=== PATIENT | female | born 1960 | race Caucasian/White ===

== ENCOUNTER 2018-03-25 15:55 | Emergency (ER) | payer OTHER ==
[2018-03-25] MEDS ORDERED: HYDROCODONE/APAP 10/325 TAB ONE (16:37)
--- NOTE | 2018-03-25 16:57 | RAD REPORT ---
EXAM DESCRIPTION: CT - Thorax Wo Con - 03/25/2018 4:37 pm CLINICAL HISTORY: Fall, right-sided chest and rib pain COMPARISON: None. TECHNIQUE: Axial 5 mm thick images of the chest were obtained without IV contrast. All CT scans are performed using dose optimization technique as appropriate and may include automated exposure control or mA/KV adjustment according to patient size. FINDINGS: Minimal scarring and/ or atelectasis in each posterior gutter. No pleural thickening or pl eural effusion. No pneumothorax. No abnormal mediastinal or hilar masses or lymphadenopathy seen. No gross aortic or pulmonary artery finding suspected. Assessment is limited in the absence of IV contrast. No pericardial thickening or effusion. No chest wall mass or abnormal axillary lymphadenopathy. No displaced rib fracture seen. No definitive fracture line identified. There is a relatively acute a ngulation of cortex of the right third, fourth and fifth ribs near the costochondral junction. Nondis placed rib fracture would be possible and can be correlated with localizing pain symptoms. There is n o similar appearance to the corresponding anterior left ribs. IMPRESSION: No displaced rib fracture, pneumothorax, pulmonary contusion or other emergent finding. The relative acute cortex angulation of the right third, fourth and fifth ribs near the costochondral junction are suspicious for nondisplaced fracture and can be correlated with localizing pain symptom s.
--- NOTE | 2018-03-25 16:58 | RAD REPORT ---
EXAM DESCRIPTION: CT - Abdomen Wo Contrast - 03/25/2018 4:38 pm CLINICAL HISTORY: Fall, right-sided rib and chest pain COMPARISON: None. TECHNIQUE: Axial [address] imaging of the abdomen was performed. No IV contrast was adm inistered. Oral contrast was administered. All CT scans are performed using dose optimization technique as appropriate and may include automated exposure control or mA/KV adjustment according to patient size. FINDINGS: Chest findings are detailed in separate report. The liver, spleen, and pancreas show no suspicious findings for non IV contrast imaging. Gallbladder and biliary tree are without suspicious finding. No hydronephrosis or suspicious renal mass. Isodense masses and pyelonephritis are not excluded on a non IV contrast study. No adrenal abnormality. No dilated bowel loops or bowel wall thickening. No free air, free fluid or inflammatory stranding. N o hernia, mass or bulky lymphadenopathy. No suspicious bony findings. Exam sensitivity is decreased when no IV contrast is administered. IMPRESSION: Non contrast CT abdomen imaging showing no significant or suspicious finding.
--- NOTE | 2018-03-25 17:16 | ER ---
Nurse's Notes [facility] Name: Carole Malagon Age: 57 yrs Sex: Female : 1960 Arrival Date: 03/25/2018 Time: 15:58 Bed 30 Private MD: Unknown, Unknown Diagnosis: RIB PAIN Presentation: 03/25 15:59 Presenting complaint: Patient states: fall about 2 days ago, unsure why she fell, pt sv uses a cane to ambulate. c/o right side pain and bruising and pain is worse with deep breathing and movement. Care prior to arrival: None. Mechanism of Injury: Fall from standing position. 15:59 Acuity: OSITO 3 sv 15:59 Method Of Arrival: Ambulatory sv 16:02 Transition of care: patient was not received from another setting of care. Onset of sv symptoms was March 23, 2018. 16:30 Risk Assessment: Do you want to hurt yourself or someone else? Patient reports no iw desire to harm self or others. Initial Sepsis Screen: Does the patient meet any 2 criteria? No. Patient's initial sepsis screen is negative. Does the patient have a suspected source of infection? No. Patient's initial sepsis screen is negative. Trauma Activation: Not Applicable Physician: ED Physician; Name: ; Notified At: ; Arrived At: Physician: General Surgeon; Name: ; Notified At: ; Arrived At: Physician: Radiology; Name: ; Notified At: ; Arrived At: Physician: Respiratory; Name: ; Notified At: ; Arrived At: Physician: Lab; Name: ; Notified At: ; Arrived At: Historical: - Allergies: 16:03 PENICILLINS; sv - PMHx: 16:03 avascular necrosis; chronic kidney disease; Hyperlipidemia; Hypertension; sv - Immunization history:: Flu vaccine is up to date. - Social history:: Smoking status: Patient/guardian denies using tobacco. - Ebola Screening: : No symptoms or risks identified at this time. Screenin:30 Abuse screen: Denies threats or abuse. Denies injuries from another. Nutritional iw screening: No deficits noted. Tuberculosis screening: No symptoms or risk factors identified. Fall Risk Fall in past 12 months (25 points). Assessment: 16:34 General: Appears in no apparent distress. Behavior is calm, cooperative. Pain: iw Complains of pain in right lateral anterior chest. 16:34 Neuro: Level of Consciousness is awake, alert, obeys commands, Oriented to person, iw place, time. Cardiovascular: Patient's skin is warm and dry. Respiratory: Respiratory effort is even, unlabored, Respiratory pattern is regular, symmetrical. Derm: Skin is intact, is healthy with good turgor. Musculoskeletal: Range of motion: intact in all extremities. Vital Signs: 16:03 BP 184 / 116; Pulse 90; Resp 16; Temp 98.8; Pulse Ox 100% ; Weight 72.57 kg; Height 5 sv ft. 5 in. (165.10 cm); Pain 10/10; 16:03 Body Mass Index 26.63 (72.57 kg, 165.10 cm) sv ED Course: 15:58 Patient arrived in ED. sb2 15:58 Unknown, Unknown is Private Physician. sb2 16:02 Triage completed. sv 16:03 Arm band placed on. sv 16:09 Yash Christine MD is Attending Physician. [facility] 16:15 Attending Physician role handed off by Yash Christine MD ps1 16:15 Luis Vivas MD is Attending Physician. ps1 16:[address] via wheelchair. ut 16:26 Iesha Emerson, RN is Primary Nurse. iw 16:30 Patient has correct armband on for positive identification. iw 16:37 CT Chest Wo Con In Process Unspecified. EDMS 16:37 Abdomen Wo Contrast In Process Unspecified. EDMS 17:16 Nestor Galvan DO is Referral Physician. ps1 17:30 No provider procedures requiring assistance completed. Patient did not have IV access iw during this emergency room visit. Administered Medications: 17:00 Drug: [place] 10 mg-325 mg 1 tabs Route: PO; iw Outcome: 17:16 Discharge ordered by . ps1 17:30 Discharged to home ambulatory, with family. iw 17:30 Condition: good 17:30 Discharge instructions given to patient, Instructed on discharge instructions, follow up and referral plans. medication usage, Demonstrated understanding of instructions, follow-up care, medications, Prescriptions given X 1. 17:32 Patient left the ED. iw Signatures: Dispatcher [employer] Demetria Evans RN RN Yash Christine MD MD cha Williams, Irene, RN JEB Leonel Zhang Phillip, MD MD ps1 Dariana Kenyon sb2 Corrections: (The following items were deleted from the chart) 17:43 16:34 Pain: Complains of pain in right lateral anterior chest iw iw
--- NOTE | 2018-03-25 17:16 | EDPHYS ---
Physician Documentation [facility] Name: Carole Malagon Age: 57 yrs Sex: Female : 1960 Arrival Date: 03/25/2018 Time: 15:58 Bed 30 Private MD: Unknown, Unknown ED Physician Luis Vivas HPI: 03/25 16:24 This 57 yrs old Female presents to ER via Ambulatory with complaints of Fall ps1 Injury. 16:24 Patient fell a week ago and has been taking norco without relief. Right rib pain at ps1 around rib 7-9 Chronic pain, sees Zahida. Cannot take NSAIDS 2/2 CKD. Pain rated as severe. No remitting factors. . Historical: - Allergies: 16:03 PENICILLINS; sv - PMHx: 16:03 avascular necrosis; chronic kidney disease; Hyperlipidemia; Hypertension; sv - Immunization history:: Flu vaccine is up to date. - Social history:: Smoking status: Patient/guardian denies using tobacco. - Ebola Screening: : No symptoms or risks identified at this time. ROS: 16:24 Constitutional: Negative for fever, chills, and weight loss, Eyes: Negative for injury, ps1 pain, redness, and discharge, Cardiovascular: Negative for chest pain, palpitations, and edema, Abdomen/GI: Negative for abdominal pain, nausea, vomiting, diarrhea, and constipation, Back: Negative for injury and pain, MS/Extremity: Negative for injury and deformity, Skin: Negative for injury, rash, and discoloration, Neuro: Negative for headache, weakness, numbness, tingling, and seizure. 16:24 Respiratory: Positive for pleurisy, of the chest. Exam: 16:32 Constitutional: This is a well developed, well nourished patient who is awake, alert, ps1 and in no acute distress. Head/Face: Normocephalic, atraumatic. Eyes: Pupils equal round and reactive to light, extra-ocular motions intact. Lids and lashes normal. Conjunctiva and sclera are non-icteric and not injected. ENT: Nares patent. No nasal discharge, no septal abnormalities noted. Tympanic membranes are normal and external auditory canals are clear. Oropharynx with no redness, swelling, or masses, exudates, or evidence of obstruction, uvula midline. Mucous membranes moist. Cardiovascular: Regular rate and rhythm. No gallops, murmurs, or rubs. Normal PMI, no JVD. No pulse deficits. Respiratory: Lungs have equal breath sounds bilaterally, clear to auscultation and percussion. No rales, rhonchi or wheezes noted. No increased work of breathing, no retractions or nasal flaring. Abdomen/GI: Soft, non-tender, with normal bowel sounds. No distension or tympany. No guarding or rebound. No evidence of tenderness throughout. Skin: Warm, dry with normal turgor. Normal color with no rashes, no lesions, and no evidence of cellulitis. MS/ Extremity: Pulses equal, no cyanosis. Neurovascular intact. Full, normal range of motion. Neuro: Awake and alert, GCS 15, oriented to person, place, time, and situation. Cranial nerves II-XII grossly intact. Sensory grossly intact. 16:32 Chest/axilla: Inspection: normal, Palpation: tenderness, that is moderate, of the right lateral anterior chest, that totally reproduces the patient's complaints. Vital Signs: 16:03 BP 184 / 116; Pulse 90; Resp 16; Temp 98.8; Pulse Ox 100% ; Weight 72.57 kg; Height 5 sv ft. 5 in. (165.10 cm); Pain 10/10; 16:03 Body Mass Index 26.63 (72.57 kg, 165.10 cm) sv MDM: 16:10 Patient medically screened. [facility] 17:17 Data reviewed: vital signs, nurses notes, radiologic studies, CT scan, and as a result, ps1 I will discharge patient. 03/25 16:16 Order name: CT Chest Wo Con; Complete Time: 17:08 ps1 03/25 16:36 Order name: Abdomen Wo Contrast; Complete Time: 17:08 EDMS Administered Medications: 17:00 Drug: [place] 10 mg-325 mg 1 tabs Route: PO; iw Disposition: 03/25/18 17:16 Discharged to Home. Impression: RIB PAIN. - Condition is Stable. - Discharge Instructions: Rib Contusion. - Prescriptions for Medrol (Jerson) 4 mg Oral Tablets, Dose Pack - take 1 tablet by ORAL route as directed - follow package instructions; 1 packet. - Medication Reconciliation Form, Thank You Letter, Antibiotic Education, Prescription Opioid Use form. - Follow up: Private Physician; When: As needed; Reason: Recheck today's complaints, Continuance of care, Re-evaluation by your physician. Follow up: Nestor Galvan DO; When: Upon discharge from the Emergency Department; Reason: Further diagnostic work-up, Continuance of care. - Problem is an ongoing problem. - Symptoms are unchanged. Signatures: Dispatcher [employer] [facility] Demetria Rice RN RN sv Anderson, Corey, MD MD cha Williams, Irene, RN RN iw Singer, Phillip, MD MD ps1 Corrections: (The following items were deleted from the chart) 16:36 16:33 Abdomen Pelvis Wo Con+CT.RAD.BRZ ordered. [facility] 17:32 17:16 03/25/2018 17:16 Discharged to Home. Impression: RIB PAIN. Condition is Stable. iw Forms are Medication Reconciliation Form, Thank You Letter, Antibiotic Education, Prescription Opioid Use. Follow up: Private Physician; When: As needed; Reason: Recheck today's complaints, Continuance of care, Re-evaluation by your physician. Follow up: Nestor Galvan; When: Upon discharge from the Emergency Department; Reason: Further diagnostic work-up, Continuance of care. Problem is an ongoing problem. Symptoms are unchanged. ps1
== END 2018-03-25 17:32 | disposition home or self-care (01) ==
LOC: ER 15:55
DX: R07.81 Pleurodynia (principal); W19.XXXA Unspecified fall, initial encounter; I12.9 Hypertensive chronic kidney disease with stage 1 through stage 4 chronic kidney disease, or unspecified chronic kidney disease; N18.9 Chronic kidney disease, unspecified
CPT/HCPCS: 71250; 74150; 99284

== ENCOUNTER 2018-06-22 16:15 | Emergency (ER) | payer OTHER ==
[2018-06-22 17:21] LABS: Potassium 3.4 mmol/L (3.5-5.1)
[2018-06-22 17:23] LABS: Absolute Lymphocytes (CBC) 2.2 K/uL (0.7-4.9); Absolute Monocytes 0.6 K/uL (0.1-1.3); Absolute Neutrophil 8.5 K/uL (1.8-8.0); Basophils % 0.5 % (0-1.3); Eosinophils % 0.4 % (0-4.4); Hematocrit 50.1 % (36.0-45.0); Lymphocytes % 19.5 % (15.3-44.8); MPV 10.7 fL (7.6-11.3); RBC Red Blood Cell Count 5.88 M/uL (3.86-4.86)
[2018-06-22 17:25] LABS: Albumin 4.5 g/dL (3.4-5.0); Bilirubin Direct 0.1 mg/dL (0-0.2); Bilirubin Total 0.6 mg/dL (0.2-1.0); Protein, Total 8.4 g/dL (6.4-8.2)
[2018-06-22] MEDS ORDERED: NA CHLORIDE 0.9% 1,000 ML ONE ×2 (17:35→19:05)
--- NOTE | 2018-06-22 18:20 | RAD REPORT ---
EXAM DESCRIPTION: CT - Abdomen Pelvis W Contrast - 06/22/2018 6:06 pm CLINICAL HISTORY: Abdominal pain/lower abdominal pain with vomiting COMPARISON: 2016 TECHNIQUE: Computed axial tomography of the abdomen pelvis was obtained. 100 cc Isovue-300 was admin istered intravenously. Oral contrast was not requested which limits evaluation of bowel. All CT scans are performed using dose optimization technique as appropriate and may include automated exposure control or mA/KV adjustment according to patient size. FINDINGS: Fatty liver The Spleen, pancreas, adrenal and kidneys appear unremarkable. There is no evidence of diverticulitis. The appendix is not clearly seen. A hysterectomy has been performed A battery pack lies within the subcutaneous fat of the right lower abdomen IMPRESSION: No acute abnormality is displayed.
--- NOTE | 2018-06-22 19:16 | ER ---
Nurse's Notes [facility] Name: Carole Malagon Age: 57 yrs Sex: Female : 1960 Arrival Date: 06/22/2018 Time: 16:19 Bed 16 Private MD: None, None Diagnosis: Nausea with vomiting, unspecified;Diarrhea, unspecified;Volume depletion Presentation: 06/22 16:27 Presenting complaint: Patient states: For the last 2 weeks I am having nausea, was la1 vomiting before but it stopped. I am also having loose stools. I am also having lower abd pain. Transition of care: patient was not received from another setting of care. Onset of symptoms was June 22, 2018. Risk Assessment: Do you want to hurt yourself or someone else? Patient reports no desire to harm self or others. Initial Sepsis Screen: Does the patient meet any 2 criteria? No. Patient's initial sepsis screen is negative. Does the patient have a suspected source of infection? No. Patient's initial sepsis screen is negative. Care prior to arrival: None. 16:27 Method Of Arrival: Ambulatory la1 16:27 Acuity: OSITO 3 la1 Historical: - Allergies: 16:27 PENICILLINS; la1 - Home Meds: 16:35 hydrocodone-acetaminophen 10-325 mg Oral tab 1 tab every 4 hours [Active]; lisinopril rb1 10 mg Oral tab 1 tab once daily [Active]; rosuvastatin 40 mg Oral tab 1 tab once daily [Active]; Lyrica Oral [Active]; Ambien Oral [Active]; Zofran Oral [Active]; Nexium Oral [Active]; - PMHx: 16:27 chronic kidney disease; Hyperlipidemia; Hypertension; avascular necrosis; la1 - PSHx: 16:35 Hysterectomy; bilateral knees; back; Tonsillectomy; Pain pump - NO MEDICATION; rb1 - Immunization history:: Adult Immunizations up to date. - Social history:: Smoking status: Patient/guardian denies using tobacco. - Ebola Screening: : No symptoms or risks identified at this time. Screenin:35 Abuse screen: Denies threats or abuse. Nutritional screening: decreased appetite. rb1 Tuberculosis screening: No symptoms or risk factors identified. Fall Risk None identified. Assessment: 16:35 General: Appears in no apparent distress. distressed, Behavior is calm, cooperative, rb1 Denies fever. Pain: Complains of pain in abdomen Pain currently is 8 out of 10 on a pain scale. Pain began a couple of weeks ago per pt. report. Neuro: Level of Consciousness is awake, alert, obeys commands, Oriented to person, place, time, situation. Neuro: Reports weakness. Cardiovascular: Capillary refill < 3 seconds is brisk in bilateral fingers. Respiratory: Airway is patent Respiratory effort is even, unlabored, Respiratory pattern is regular, symmetrical. GI: Reports Soft stools. GI: Reports nausea. : No signs and/or symptoms were reported regarding the genitourinary system. Derm: Skin is pink, warm \T\ dry. 17:30 Reassessment: Patient appears in no apparent distress at this time. No changes from rb1 previously documented assessment. Pt. is unable to give a urine specimen at this time. at bedside. 18:30 Reassessment: Patient appears in no apparent distress at this time. Patient and/or rb1 family updated on plan of care and expected duration. Pain level reassessed. Patient is alert, oriented x 3, equal unlabored respirations, skin warm/dry/pink. NS 1000 ml bolus is infusing. Pt. does not have to urinate at this time. 19:25 Reassessment: Patient appears in no apparent distress at this time. Patient is alert, aa1 oriented x 3, equal unlabored respirations, skin warm/dry/pink. Discussed d/c \T\ f/u instructions with pt \T\ spouse; denies questions or concerns at this time Patient denies pain at this time. Patient states feeling better. Vital Signs: 16:29 Resp 16; Temp 97.5; Pulse Ox 98% on R/A; Weight 75.3 kg; Height 5 ft. 5 in. (165.10 cm);la1 16:32 BP 161 / 114; la1 17:29 BP 128 / 96; Pulse 85; Resp 17; Pulse Ox 96% on R/A; Pain 8/10; rb1 19:25 BP 138 / 89; Pulse 82; Resp 16; Temp 97.7; Pulse Ox 98% on R/A; Pain 0/10; aa1 16:29 Body Mass Index 27.62 (75.30 kg, 165.10 cm) la1 ED Course: 16:19 Patient arrived in ED. sb2 16:20 None, None is Private Physician. sb2 16:28 Triage completed. la1 16:29 Arm band placed on left wrist. la1 16:33 Mindy Beach FNP-C is [facility]. kb 16:33 Avila Soto MD is Attending Physician. kb 16:35 Patient has correct armband on for positive identification. Bed in low position. Call rb1 light in reach. Side rails up X 1. Pulse ox on. NIBP on. 16:53 Initial lab(s) drawn, by me, sent to lab. Inserted saline lock: 20 gauge in left dh3 antecubital area, using aseptic technique. Blood collected. 17:22 Flores Melgar, RN is Primary Nurse. rb1 17:[address] 18:05 CT completed. Patient tolerated procedure well. Patient moved back from CT. bq 18:06 CT Abd/Pelvis - W/Contrast In Process Unspecified. EDMS 19:00 Report given to JEB Hale. rb1 19:25 No provider procedures requiring assistance completed. IV discontinued, intact, aa1 bleeding controlled, No redness/swelling at site. Pressure dressing applied. Administered Medications: 17:31 Drug: NS 0.9% 1000 ml Route: IV; Rate: 1000 ml; Site: left antecubital; rb1 18:47 Follow up: IV Status: Completed infusion rb1 18:55 Drug: NS 0.9% 1000 ml Route: IV; Rate: 1000 ml; Site: left antecubital; rb1 19:25 Follow up: IV Status: Completed infusion aa1 Outcome: 19:15 Discharge ordered by . kb 19:25 Patient left the ED. aa1 19:25 Discharged to home ambulatory, with significant other. aa1 19:25 Condition: good 19:25 Discharge instructions given to patient, significant other, Instructed on discharge instructions, follow up and referral plans. medication usage, Demonstrated understanding of instructions, follow-up care, medications, Prescriptions given X 2. Signatures: Dispatcher [employer] EDAZ Mindy Beach FNP-C FNP-Alexia Briceno RN RN aa1 Guy Adam Quilty, Whit bq Mike Cook RN RN la1 Flores Melgar, RN RN rb1 Verenice Castaneda 3 Dariana Kenyon sb2
--- NOTE | 2018-06-22 19:16 | EDPHYS ---
Physician Documentation [facility] Name: Carole Malagon Age: 57 yrs Sex: Female : 1960 Arrival Date: 06/22/2018 Time: 16:19 Bed 16 Private MD: None, None ED Physician Avila Soto HPI: 06/22 16:50 This 57 yrs old Female presents to ER via Ambulatory with complaints of kb Weakness, Nausea, Loose Stools. 16:50 The patient presents with abdominal pain that is diffuse. Onset: The symptoms/episode kb began/occurred 2 week(s) ago. The symptoms do not radiate. Associated signs and symptoms: Pertinent positives: nausea, vomiting, and diarrhea. The symptoms are described as constant. Modifying factors: The symptoms are alleviated by nothing, the symptoms are aggravated by nothing. Severity of pain: At its worst the pain was moderate in the emergency department the pain is unchanged. The patient has not experienced similar symptoms in the past. The patient has not recently seen a physician. Historical: - Allergies: 16:27 PENICILLINS; la1 - Home Meds: 16:35 hydrocodone-acetaminophen 10-325 mg Oral tab 1 tab every 4 hours [Active]; lisinopril rb1 10 mg Oral tab 1 tab once daily [Active]; rosuvastatin 40 mg Oral tab 1 tab once daily [Active]; Lyrica Oral [Active]; Ambien Oral [Active]; Zofran Oral [Active]; Nexium Oral [Active]; - PMHx: 16:27 chronic kidney disease; Hyperlipidemia; Hypertension; avascular necrosis; la1 - PSHx: 16:35 Hysterectomy; bilateral knees; back; Tonsillectomy; Pain pump - NO MEDICATION; rb1 - Immunization history:: Adult Immunizations up to date. - Social history:: Smoking status: Patient/guardian denies using tobacco. - Ebola Screening: : No symptoms or risks identified at this time. ROS: 16:49 Constitutional: Negative for fever, chills, and weight loss, ENT: Negative for injury, kb pain, and discharge, Neck: Negative for injury, pain, and swelling, Cardiovascular: Negative for chest pain, palpitations, and edema, Respiratory: Negative for shortness of breath, cough, wheezing, and pleuritic chest pain, Back: Negative for injury and pain, : Negative for injury, bleeding, discharge, and swelling, MS/Extremity: Negative for injury and deformity, Skin: Negative for injury, rash, and discoloration, Neuro: Negative for headache, weakness, numbness, tingling, and seizure. 16:49 Abdomen/GI: Positive for abdominal pain, nausea, vomiting, and diarrhea. Exam: 16:49 Constitutional: This is a well developed, well nourished patient who is awake, alert, kb and in no acute distress. Head/Face: Normocephalic, atraumatic. ENT: Nares patent. No nasal discharge, no septal abnormalities noted. Tympanic membranes are normal and external auditory canals are clear. Oropharynx with no redness, swelling, or masses, exudates, or evidence of obstruction, uvula midline. Mucous membranes moist. Neck: Trachea midline, no thyromegaly or masses palpated, and no cervical lymphadenopathy. Supple, full range of motion without nuchal rigidity, or vertebral point tenderness. No Meningismus. Chest/axilla: Normal chest wall appearance and motion. Nontender with no deformity. No lesions are appreciated. Cardiovascular: Regular rate and rhythm with a normal S1 and S2. No gallops, murmurs, or rubs. Normal PMI, no JVD. No pulse deficits. Respiratory: Lungs have equal breath sounds bilaterally, clear to auscultation and percussion. No rales, rhonchi or wheezes noted. No increased work of breathing, no retractions or nasal flaring. Abdomen/GI: Soft, non-tender, with normal bowel sounds. No distension or tympany. No guarding or rebound. No evidence of tenderness throughout. Skin: Warm, dry with normal turgor. Normal color with no rashes, no lesions, and no evidence of cellulitis. MS/ Extremity: Pulses equal, no cyanosis. Neurovascular intact. Full, normal range of motion. Neuro: Awake and alert, GCS 15, oriented to person, place, time, and situation. Cranial nerves II-XII grossly intact. Motor strength 5/5 in all extremities. Sensory grossly intact. Cerebellar exam normal. Normal gait. Vital Signs: 16:29 Resp 16; Temp 97.5; Pulse Ox 98% on R/A; Weight 75.3 kg; Height 5 ft. 5 in. (165.10 cm);la1 16:32 BP 161 / 114; la1 17:29 BP 128 / 96; Pulse 85; Resp 17; Pulse Ox 96% on R/A; Pain 8/10; rb1 19:25 BP 138 / 89; Pulse 82; Resp 16; Temp 97.7; Pulse Ox 98% on R/A; Pain 0/10; aa1 16:29 Body Mass Index 27.62 (75.30 kg, 165.10 cm) la1 MDM: 16:33 Patient medically screened. kb 16:49 Data reviewed: vital signs, nurses notes. Data interpreted: Pulse oximetry: on room air kb is 98 %. Interpretation: normal. 18:22 Counseling: I had a detailed discussion with the patient and/or guardian regarding: the kb historical points, exam findings, and any diagnostic results supporting the discharge/admit diagnosis, lab results, radiology results, the need for outpatient follow up, a family practitioner, to return to the emergency department if symptoms worsen or persist or if there are any questions or concerns that arise at home. 06/22 16:33 Order name: Basic Metabolic Panel; Complete Time: 17:27 kb 06/22 16:33 Order name: CBC with Diff; Complete Time: 17:31 kb 06/22 16:44 Order name: Hepatic Function; Complete Time: 17:27 kb 06/22 16:44 Order name: Lipase; Complete Time: 17:27 kb 06/22 17:31 Order name: CT Abd/Pelvis - W/Contrast; Complete Time: 18:22 kb 06/22 19:17 Order name: Urine Dipstick--Ancillary (enter results) ag4 06/22 16:33 Order name: IV Saline Lock; Complete Time: 16:57 kb 06/22 16:33 Order name: Labs collected and sent; Complete Time: 16:57 kb 06/22 16:44 Order name: Urine Dipstick-Ancillary (obtain specimen); Complete Time: 19:27 kb Administered Medications: 17:31 Drug: NS 0.9% 1000 ml Route: IV; Rate: 1000 ml; Site: left antecubital; rb1 18:47 Follow up: IV Status: Completed infusion rb1 18:55 Drug: NS 0.9% 1000 ml Route: IV; Rate: 1000 ml; Site: left antecubital; rb1 19:25 Follow up: IV Status: Completed infusion aa1 Disposition: 06/23 07:21 Co-signature as Attending Physician, Avila Soto MD. rn Disposition: 06/22/18 19:15 Discharged to Home. Impression: Nausea with vomiting, unspecified, Diarrhea, unspecified, Volume depletion. - Condition is Stable. - Discharge Instructions: Food Choices to Help Relieve Diarrhea, Adult, Nausea and Vomiting, Adult, [id number], Diarrhea, Adult, [id number]. - Prescriptions for Bentyl 20 mg Oral Tablet - take 1 tablet by ORAL route every 6 hours As needed; 20 tablet. Zofran 4 mg Oral Tablet - take 1 tablet by ORAL route every 6 hours As needed; 20 tablet. - Medication Reconciliation Form, Thank You Letter, Antibiotic Education, Prescription Opioid Use form. - Follow up: Private Physician; When: 2 - 3 days; Reason: Recheck today's complaints, Continuance of care, Re-evaluation by your physician. Follow up: Emergency Department; When: As needed; Reason: Worsening of condition. Signatures: Dispatcher [employer] EDGA [place], ART GLASS SETTER-C ART GLASS SETTER-CkAlexia Garvey, RN RN aa1 Avila Soto MD MD rn Attema, Lee, RN RN la1 Flores Melgar, RN RN rb1 Corrections: (The following items were deleted from the chart) 06/22 19:25 19:15 06/22/2018 19:15 Discharged to Home. Impression: Nausea with vomiting, aa1 unspecified; Diarrhea, unspecified; Volume depletion. Condition is Stable. Forms are Medication Reconciliation Form, Thank You Letter, Antibiotic Education, Prescription Opioid Use. Follow up: Private Physician; When: 2 - 3 days; Reason: Recheck today's complaints, Continuance of care, Re-evaluation by your physician. Follow up: Emergency Department; When: As needed; Reason: Worsening of condition. kb
[2018-06-22 19:24] LABS: Urine Blood NEGATIVE (NEG); Urine Glucose NEGATIVE (NEG); Urine Protein NEGATIVE (NEG); Urine Specific Gravity 1.005 (1.005-1.030); Urine pH 5.5 (5.0-7.0)
== END 2018-06-22 19:25 | disposition home or self-care (01) ==
LOC: ER 16:15
DX: E86.9 Volume depletion, unspecified (principal); R19.7 Diarrhea, unspecified; I12.9 Hypertensive chronic kidney disease with stage 1 through stage 4 chronic kidney disease, or unspecified chronic kidney disease; N18.9 Chronic kidney disease, unspecified; E78.5 Hyperlipidemia, unspecified; Z88.0 Allergy status to penicillin
CPT/HCPCS: 36415; 74177; 80048; 80076; 81003; 83690; 85025; 96360; 96361; 99284; J7030 ×2; Q9967

== ENCOUNTER 2019-04-07 10:21 | Inpatient (IN) | payer OTHER ==
[2019-04-07] MEDS ORDERED: LEVALBUTEROL 1.25 MG/3 ML NEB ONE (10:27)
[2019-04-07] MEDS ORDERED: IPRATROPIUM BROM 0.5MG/2.5ML ONE ×2 (10:27→14:35)
[2019-04-07] MEDS ORDERED: METHYLPREDNISOLONE 125 MG INJ ONE (10:54)
[2019-04-07 11:11] LABS: Absolute Lymphocytes (CBC) 1.7 K/uL (0.7-4.9); Basophils % 0.9 % (0-1.3); Hematocrit 40.2 % (36.0-45.0); Lymphocytes % 25.2 % (15.3-44.8); MPV 10.5 fL (7.6-11.3); RBC Red Blood Cell Count 4.75 M/uL (3.86-4.86)
[2019-04-07 11:18] LABS: Protime INR 0.96
[2019-04-07 11:32] LABS: Bilirubin Total 0.5 mg/dL (0.2-1.0); Lipase 141 U/L (73-393); Magnesium 2.2 mg/dL (1.8-2.4); NT PRO-BNP 40 pg/mL (<125); Protein, Total 7.7 g/dL (6.4-8.2); Troponin (Emerg Dept Use Only) < 0.02 ng/mL (0.0-0.045)
--- NOTE | 2019-04-07 11:58 | EKG ---
Test Date: 2019-04-07 Test Time: 10:33:00 Open End Spinning Operator: ELI MEASUREMENT RESULTS: Intervals: Rate: 109 ME: 114 QRSD: 66 QT: 318 QTc: 428 [place]: P: 49 ME: 114 QRS: 41 T: 9 INTERPRETIVE STATEMENTS: Sinus tachycardia Otherwise normal ECG Compared to ECG 11/23/2016 10:51:18 Short ME interval no longer present ST (T wave) deviation no longer present Electronically Signed On 04-07-19 11:57:51 GAME AGENT by Akash Andrade
--- NOTE | 2019-04-07 12:05 | RAD REPORT ---
EXAM DESCRIPTION: RAD - Chest Single View - 04/07/2019 11:56 am CLINICAL HISTORY: COUGH Chest pain. COMPARISON: Chest Single View dated 02/01/2016; CHEST SINGLE VIEW dated 08/03/2008; CHEST SINGLE VIEW dated 07/20/2008; CHEST PA AND LAT 2 VIEW dated 03/25/2008 FINDINGS: Portable technique limits examination quality. The lungs are underinflated resulting in vascular crowding. The heart is normal in size. No displaced fractures.
[2019-04-07] MEDS ORDERED: ALBUTEROL 2.5 MG/3 ML NEB SOL ONE (14:35)
--- NOTE | 2019-04-07 16:38 | ER ---
Nurse's Notes [facility] Name: Carole Malagon Age: 58 yrs Sex: Female : 1960 Arrival Date: 04/07/2019 Time: 10:22 Bed 26 Private MD: Diagnosis: Difficulty breathing;Hypoxia;wheezing;Tachycardia Presentation: 04/07 10:24 Presenting complaint: Patient states: I am on a zpack and have been having SOB, I went la1 to a clinic and they gave me a treatment but I didn't get better so they sent me here. Transition of care: patient was not received from another setting of care. Onset of symptoms was April 07, 2019. Risk Assessment: Do you want to hurt yourself or someone else? Patient reports no desire to harm self or others. Initial Sepsis Screen: Does the patient meet any 2 criteria? Temp <36.0*C (96.8*F)) or > 38.3*C (100.9*F). HR > 90 bpm. Yes Does the patient have a suspected source of infection? No. Patient's initial sepsis screen is negative. Care prior to arrival: None. 10:24 Method Of Arrival: Ambulatory la1 10:24 Acuity: OSITO 2 la1 Historical: - Allergies: 10:25 PENICILLINS; la1 - PMHx: 10:25 avascular necrosis; chronic kidney disease; Hyperlipidemia; Hypertension; la1 - Immunization history:: Adult Immunizations up to date. - Social history:: Smoking status: Patient/guardian denies using tobacco. - Ebola Screening: : No symptoms or risks identified at this time. Screenin:25 Abuse screen: Denies threats or abuse. Denies injuries from another. Nutritional aj1 screening: No deficits noted. Tuberculosis screening: No symptoms or risk factors identified. Assessment: 10:25 General: Appears distressed, uncomfortable, Behavior is cooperative, anxious. Pain: aj1 Denies pain. Neuro: Level of Consciousness is awake, alert, obeys commands, Oriented to person, place, time, situation. Cardiovascular: Heart tones S1 S2 present Patient's skin is warm and dry. Respiratory: Airway is patent Respiratory effort is even, labored, Respiratory pattern is regular, symmetrical, tachypnea Breath sounds with wheezes bilaterally. GI: No signs and/or symptoms were reported involving the gastrointestinal system. : No signs and/or symptoms were reported regarding the genitourinary system. EENT: No signs and/or symptoms were reported regarding the EENT system. Derm: No signs and/or symptoms reported regarding the dermatologic system. Skin is pink, warm \T\ dry. normal. Musculoskeletal: No signs and/or symptoms reported regarding the musculoskeletal system. Circulation, motion, and sensation intact. 11:30 General: Appears in no apparent distress. uncomfortable, Behavior is calm, cooperative, aj1 appropriate for age. Pain: Denies pain. Neuro: Level of Consciousness is awake, alert, obeys commands, Oriented to person, place, time, situation. Cardiovascular: Patient's skin is warm and dry. Respiratory: Airway is patent Respiratory effort is even, labored, Respiratory pattern is regular, symmetrical, tachypnea Breath sounds with wheezes bilaterally. Patient's respiratory rate has now come down to the 20's, patient states that she feels less short of breath than when she first arrived. 11:30 Derm: Skin is pink, warm \T\ dry. normal. Musculoskeletal: Circulation, motion, and aj1 sensation intact. 12:43 General: Appears in no apparent distress. comfortable, Behavior is calm, cooperative, aj1 appropriate for age. Pain: Denies pain. Neuro: Level of Consciousness is awake, alert, obeys commands, Oriented to person, place, time, situation. Cardiovascular: Patient's skin is warm and dry. Respiratory: Airway is patent Respiratory effort is even, unlabored, Respiratory pattern is regular, symmetrical, Breath sounds with wheezes bilaterally. Derm: Skin is pink, warm \T\ dry. normal. Musculoskeletal: Circulation, motion, and sensation intact. 13:49 Reassessment: Patient appears in no apparent distress at this time. No changes from aj1 previously documented assessment. Patient and/or family updated on plan of care and expected duration. Pain level reassessed. Patient is alert, oriented x 3, equal unlabored respirations, skin warm/dry/pink. 14:45 Reassessment: Patient and/or family updated on plan of care and expected duration. Pain aj1 level reassessed. General: Appears in no apparent distress. comfortable, Behavior is calm, cooperative, appropriate for age. Pain: Denies pain. Neuro: Level of Consciousness is awake, alert, obeys commands, Oriented to person, place, time, situation. Cardiovascular: Patient's skin is warm and dry. Respiratory: Airway is patent Respiratory effort is even, unlabored, Respiratory pattern is regular, symmetrical, tachypnea Breath sounds with wheezes bilaterally. Derm: No signs and/or symptoms reported regarding the dermatologic system. Skin is pink, warm \T\ dry. normal. Musculoskeletal: No signs and/or symptoms reported regarding the musculoskeletal system. Circulation, motion, and sensation intact. 15:43 Reassessment: Patient appears in no apparent distress at this time. No changes from aj1 previously documented assessment. Patient and/or family updated on plan of care and expected duration. Pain level reassessed. Patient is alert, oriented x 3, equal unlabored respirations, skin warm/dry/pink. 16:45 Reassessment: Patient appears in no apparent distress at this time. No changes from aj1 previously documented assessment. Patient and/or family updated on plan of care and expected duration. Pain level reassessed. Patient is alert, oriented x 3, equal unlabored respirations, skin warm/dry/pink. 17:43 Reassessment: Patient and/or family updated on plan of care and expected duration. Pain aj1 level reassessed. General: Appears in no apparent distress. comfortable, Behavior is calm, cooperative, appropriate for age. Pain: Denies pain. Neuro: Level of Consciousness is awake, alert, obeys commands, Oriented to person, place, time, situation. Cardiovascular: Patient's skin is warm and dry. Rhythm is sinus tachycardia. Respiratory: Airway is patent Respiratory effort is even, unlabored, Respiratory pattern is regular, symmetrical. GI: No signs and/or symptoms were reported involving the gastrointestinal system. Derm: No signs and/or symptoms reported regarding the dermatologic system. Skin is pink, warm \T\ dry. normal. Vital Signs: 10:25 BP 138 / 105; Pulse 130; Resp 38; Temp 98.9; Pulse Ox 98% on R/A; Weight 77.11 kg; la1 Height 5 ft. 5 in. (165.10 cm); 11:06 BP 136 / 101; Pulse 120; Resp 32; Pulse Ox 99% on 3 lpm NC; aj1 11:58 BP 137 / 95; Pulse 105; Resp 24; Pulse Ox 95% on 3 lpm NC; aj1 12:43 Pulse 110; Resp 23; Pulse Ox 95% on 2 lpm NC; aj1 13:49 BP 111 / 96; Pulse 106; Resp 26; Pulse Ox 96% on 2 lpm NC; aj1 14:45 BP 122 / 93; Pulse 115; Resp 20; Pulse Ox 90% on R/A; aj1 15:44 BP 103 / 80; Pulse 133; Resp 26; Pulse Ox 98% on Nebulizer Mask; aj1 16:45 BP 105 / 80; Pulse 131; Resp 28; Pulse Ox 95% on 2 lpm NC; aj1 17:45 BP 112 / 81; Pulse 121; Resp 24; Pulse Ox 95% on 2 lpm NC; aj1 10:25 Body Mass Index 28.29 (77.11 kg, 165.10 cm) la1 ED Course: 10:22 Patient arrived in ED. jr8 10:23 Luis Vivas MD is Attending Physician. ps1 10:25 Triage completed. la1 10:25 Arm band placed on left wrist. la1 10:25 No provider procedures requiring assistance completed. aj1 10:40 Linnette Madrigal, RN is Primary Nurse. aj1 10:40 Inserted saline lock: 20 gauge in right antecubital area, using aseptic technique. aj1 10:41 EKG done, by commercial hvac service technician. reviewed by Luis Vivas MD. sm3 10:53 Initial lab(s) drawn, by ED staff, sent to lab. jp3 11:00 First set of blood cultures drawn by me in [facility]. jp3 11:38 Second set of blood cultures drawn by from [facility]. jp3 11:41 Placed in gown. Bed in low position. Call light in reach. Side rails up X 1. Verbal jp3 reassurance given. academic computing director on. Pulse ox on. NIBP on. 11:56 XRAY CXR (1 view) In Process Unspecified. EDMS 16:36 Paloma Walker MD is Hospitalizing Provider. ps1 20:02 Patient admitted, IV remains in place. mg2 Administered Medications: 10:41 Drug: Xopenex (3) 1.25 mg Route: Inhalation; aj1 10:41 Drug: AtroVENT Aerosol 0.5 mg Route: Inhalation; aj1 11:05 Drug: SOLU-Medrol 125 mg Route: IVP; Site: right antecubital; aj1 15:00 Drug: Albuterol - atroVENT (3:1) (2.5 mg - 0.5 mg) 3 ml Route: Nebulizer; aj1 Outcome: 16:38 Decision to Hospitalize by Provider. ps1 20:02 Admitted to Tele accompanied by tech, room 419, with oxygen, with chart. mg2 20:02 Condition: stable 20:02 Instructed on the need for admit, Demonstrated understanding of instructions. 20:03 Patient left the ED. mg2 Signatures: Dispatcher [employer] EDMS Linnette Madrigal, RN RN aj1 Sunday Morales PA PA jr8 Mike Cook RN RN la1 Luis Vivas MD MD ps1 Pritesh Olguin RN RN mg2 Sharon Matson 3 Jaylon Nicolas jp3 Corrections: (The following items were deleted from the chart) 11:41 10:50 Inserted saline lock: 20 gauge in right antecubital area, using aseptic jp3 technique. Blood collected. by Nurse Linnette hook
--- NOTE | 2019-04-07 16:39 | EDPHYS ---
Physician Documentation [facility] Name: Carole Malagon Age: 58 yrs Sex: Female : 1960 Arrival Date: 04/07/2019 Time: 10:22 Bed 26 Private MD: ED Physician Luis Vivas HPI: 04/07 10:46 This 58 yrs old Female presents to ER via Ambulatory with complaints of ps1 difficulty breathing and wheezing. 10:46 Patient states that she has had a cough for last week and just finished a course of ps1 zithromax. Patient presented wheezing audibly. In moderate respiratory distress and currently on a NRB with breathing treatment. Has been using an inhaler q 4 hours without remission. . Historical: - Allergies: 10:25 PENICILLINS; la1 - PMHx: 10:25 avascular necrosis; chronic kidney disease; Hyperlipidemia; Hypertension; la1 - Immunization history:: Adult Immunizations up to date. - Social history:: Smoking status: Patient/guardian denies using tobacco. - Ebola Screening: : No symptoms or risks identified at this time. ROS: 10:46 Constitutional: Negative for fever, chills, and weight loss, Eyes: Negative for injury, ps1 pain, redness, and discharge, Cardiovascular: Negative for chest pain, palpitations, and edema, Abdomen/GI: Negative for abdominal pain, nausea, vomiting, diarrhea, and constipation, Back: Negative for injury and pain, MS/Extremity: Negative for injury and deformity, Skin: Negative for injury, rash, and discoloration. 10:46 Respiratory: Positive for cough, wheezing. Exam: 10:51 Head/Face: Normocephalic, atraumatic. Eyes: Pupils equal round and reactive to light, ps1 extra-ocular motions intact. Lids and lashes normal. Conjunctiva and sclera are non-icteric and not injected. Chest/axilla: Normal chest wall appearance and motion. Nontender with no deformity. No lesions are appreciated. Abdomen/GI: Soft, non-tender, with normal bowel sounds. No distension or tympany. No guarding or rebound. No evidence of tenderness throughout. Skin: Warm, dry with normal turgor. Normal color with no rashes, no lesions, and no evidence of cellulitis. MS/ Extremity: Pulses equal, no cyanosis. Neurovascular intact. Full, normal range of motion. Neuro: Awake and alert, GCS 15, oriented to person, place, time, and situation. Cranial nerves II-XII grossly intact. Sensory grossly intact. 10:51 Constitutional: The patient appears alert, anxious. 10:51 Cardiovascular: Rate: tachycardic, Rhythm: regular, Pulses: no pulse deficits are appreciated. 10:51 Respiratory: mild respiratory distress is noted, Respirations: labored breathing, Breath sounds: wheezing: expiratory is heard diffusely. Vital Signs: 10:25 BP 138 / 105; Pulse 130; Resp 38; Temp 98.9; Pulse Ox 98% on R/A; Weight 77.11 kg; la1 Height 5 ft. 5 in. (165.10 cm); 11:06 BP 136 / 101; Pulse 120; Resp 32; Pulse Ox 99% on 3 lpm NC; aj1 11:58 BP 137 / 95; Pulse 105; Resp 24; Pulse Ox 95% on 3 lpm NC; aj1 12:43 Pulse 110; Resp 23; Pulse Ox 95% on 2 lpm NC; aj1 13:49 BP 111 / 96; Pulse 106; Resp 26; Pulse Ox 96% on 2 lpm NC; aj1 14:45 BP 122 / 93; Pulse 115; Resp 20; Pulse Ox 90% on R/A; aj1 15:44 BP 103 / 80; Pulse 133; Resp 26; Pulse Ox 98% on Nebulizer Mask; aj1 16:45 BP 105 / 80; Pulse 131; Resp 28; Pulse Ox 95% on 2 lpm NC; aj1 17:45 BP 112 / 81; Pulse 121; Resp 24; Pulse Ox 95% on 2 lpm NC; aj1 10:25 Body Mass Index 28.29 (77.11 kg, 165.10 cm) la1 MDM: 10:36 Patient medically screened. ps1 04/07 10:45 Order name: Blood Culture Adult (2) ps1 04/07 10:45 Order name: CBC with Diff; Complete Time: 11: ps1 04/07 10:45 Order name: Lipase; Complete Time: 11: ps1 04/07 10:45 Order name: Magnesium; Complete Time: 11: ps1 04/07 10:45 Order name: NT PRO-BNP; Complete Time: 11: ps1 04/07 10:45 Order name: PT-INR; Complete Time: 11:40 [facility] 04/07 10:45 Order name: XRAY CXR (1 view); Complete Time: 12:43 [facility] 04/07 10:45 Order name: Ptt, Activated; Complete Time: 11:40 [facility] 04/07 10:45 Order name: Troponin (emerg Dept Use Only); Complete Time: 11:31 [facility] 04/07 10:45 Order name: CMP; Complete Time: 11: [facility] 04/07 10:48 Order name: Blood Culture [facility] 04/07 14:43 Order name: DD; Complete Time: 16:32 [facility] 04/07 10:45 Order name: EKG; Complete Time: 10:48 [facility] 04/07 10:45 Order name: Cardiac monitoring; Complete Time: 10:48 [facility] 04/07 10:45 Order name: EKG - Nurse/Tech; Complete Time: 10:48 [facility] 04/07 10:45 Order name: IV Saline Lock; Complete Time: 10:49 [facility] 04/07 10:45 Order name: Labs collected and sent; Complete Time: 10:49 [facility] 04/07 10:45 Order name: O2 Per Protocol; Complete Time: 10:49 [facility] 04/07 10:45 Order name: O2 Sat Monitoring; Complete Time: 10:49 ps1 Administered Medications: 10:41 Drug: Xopenex (3) 1.25 mg Route: Inhalation; aj1 10:41 Drug: AtroVENT Aerosol 0.5 mg Route: Inhalation; aj1 11:05 Drug: SOLU-Medrol 125 mg Route: IVP; Site: right antecubital; aj1 15:00 Drug: Albuterol - atroVENT (3:1) (2.5 mg - 0.5 mg) 3 ml Route: Nebulizer; aj1 Disposition: 04/07/19 16:38 Hospitalization ordered by Paloma Walker for Observation. Preliminary diagnosis are Difficulty breathing, Hypoxia, wheezing, Tachycardia. - Bed requested for Telemetry/MedSurg (observation). - Status is Observation. mg2 - Condition is Fair. - Problem is new. - Symptoms are unchanged. UTI on Admission? No Signatures: Dispatcher [employer] EDMS Huong Worley Angela, RN RN aj1 Mike Cook RN RN la1 Luis Vivas MD MD ps1 [place], Pritesh, RN RN mg2 Corrections: (The following items were deleted from the chart) 18:45 16:38 Hospitalization Ordered by Paloma Walker MD for Observation. Preliminary diagnosis bd is Difficulty breathing; Hypoxia; wheezing; Tachycardia. Bed requested for Telemetry/MedSurg (observation). Status is Observation. Condition is Fair. Problem is new. Symptoms are unchanged. UTI on Admission? No. ps1 20:03 18:45 04/07/2019 16:38 Hospitalization Ordered by Paloma Walker MD for Observation. mg2 Preliminary diagnosis is Difficulty breathing; Hypoxia; wheezing; Tachycardia. Bed requested for Telemetry/MedSurg (observation). Status is Observation. Condition is Fair. Problem is new. Symptoms are unchanged. UTI on Admission? No. bd
[2019-04-07] MEDS ORDERED: ONDANSETRON 4 MG/2 ML VIAL IV PRN (20:08)
[2019-04-07] MEDS ORDERED: LEVALBUTEROL 1.25 MG/3 ML NEB NEB SCH (20:08)
[2019-04-07] MEDS: NA CHLORIDE 0.9% 1,000 ML IV SCH (21:00)
[2019-04-07] MEDS ORDERED: AZITHROMYCIN IV 500 MG in NA CHLORIDE 0.9% 250 ML IVPB SCH (21:00)
[2019-04-07] MEDS: IPRATROPIUM BROM 0.5MG/2.5ML NEB SCH (21:05)
[2019-04-07] MEDS: ALBUTEROL 2.5 MG/3 ML NEB SOL NEB SCH (21:05)
[2019-04-07] MEDS ORDERED: AZITHROMYCIN 500 MG INJ IVPB ONE (22:01)
[2019-04-07] MEDS ORDERED: NA CHLORIDE 0.9% 250 ML ONE (22:05)
[2019-04-07] MEDS: BENZONATATE 100 MG CAP PO PRN (23:38)
[2019-04-07] MEDS: GUAIFENESIN/CODEINE 5ML UCUP PO PRN (23:38)
[2019-04-08] MEDS: IPRATROPIUM BROM 0.5MG/2.5ML NEB SCH ×5 (00:25→20:00)
--- NOTE | 2019-04-08 00:34 | HP ---
Date of Admission: 04/07/2019 Chief Complaint: Shortness of breath, cough, dyspnea upon exertion. History Of Present Illness: Patient is a 58-year-old female with past medical history of asthma, hyp ertension, hyperlipidemia, avascular necrosis, chronic pain syndrome, comes in with shortness of leilani th and worsening symptoms. For the past 2 weeks, patient was on Z-Jerson for the last dose due today. Patient reports cough with no sputum production. No ill contacts. No fevers or chills. Reports wor sening of her allergy symptoms as well as her asthma. She is requiring nebulizer treatments, was see n in her PCPs office, did not improve, and now comes into the ER. Symptoms are constant, moderate, p rogressively worsening. Patient was tachycardic, rate in the 120s, was wheezing, was saturating 90% on room air, was given multiple breathing treatments, which improved her condition slightly. D-dimer was negative. White count was normal. Troponin was negative. The patient's chest x-ray was clear, did show some underinflated lungs resulting in vascular crowding. No history of congestive heart fa ilure. BNP is normal range. Patient was then referred for admission. When seen in the ER, she was awake, alert, and oriented x3, in some mild respiratory distress. Past Medical History: Hypertension, hyperlipidemia, asthma, avascular necrosis, bilateral knee repla cements, shoulder surgery, hysterectomy, and back surgery. Allergies: TO AMOXACILLIN, CARBONIC ACID CAUSES HIVES. Medications: List reviewed. Social History: Patient denies any tobacco use, alcohol use, or illicit drug use. Patient is disabl ed lives at home. Does not work. Family History: Negative for any premature coronary artery disease in the family. Review of Systems: Ten-point system reviewed, negative except as per HPI. Physical Examination: Vital Signs: Blood pressure 138/105, pulse 130, respirations 38, temperature 98.9, O2 98% on room ai r, did drop down to 90% on room air. General: Awake, alert, and oriented x3. Ill-appearing female, in moderate respiratory distress. HEENT: Normocephalic, atraumatic. PERRLA. EOMI. Moist mucous membranes. Oropharynx is clear. Po or dentition. Conjunctivae are anicteric. Neck: Supple. No JVD. Trachea midline. CV: S1, S2. Sinus tachycardia. No murmurs. Peripheral pulses present. Respiratory: The patient is tachypneic with use of accessory muscles. No stridor. Patient is wheez ing diffusely. Gastrointestinal: Abdomen is soft, nontender, nondistended. Positive bowel sounds. No guarding or rigidity. Extremities: No clubbing, cyanosis, or edema. No calf tenderness. Neuro: Cranial nerves 2 through 12 intact grossly. No focal neurological deficits. Speech is polina l. Skin: No rashes, normal skin turgor. Psych: Mood is somewhat anxious. Affect is congruent with mood. Insight and judgment are fair. Laboratory Data: Sodium 142, potassium 4, chloride 111, CO2 24, BUN 14, creatinine 0.98, glucose 98, calcium 9.1, magnesium 2.2, AST 11, ALT 18. Troponin less than 0.02. BNP is 40. Lipase 141. WBC 6.9, H and H 13.7 and 40.2, platelets 221. INR 0.96. D-dimer 477. Chest x-ray personally reviewed shows vascular crowding, otherwise clear due to shallow inspiration. EKG shows sinus tachycardia rate of 109. Assessment: A 58-year-old female with, 1.Acute respiratory distress with hypoxia, currently on oxygen secondary to acute asthma exacerbatio n and bronchitis. We will place on supplemental oxygen and continue to monitor. 2.Acute asthma exacerbation, continue on breathing treatments. Consult Pulmonology. Start on IV st eroids. We will consult Respiratory Therapy and check spirometry. We will continue with ipratropium and Xopenex. Avoid albuterol due to her sinus tachycardia. 3.Sinus tachycardia, unclear etiology. D-dimer is negative. Doubt pulmonary embolism. We will sandra ck echocardiogram. 4.Essential hypertension. Continue with home medications as appropriate. 5.Mixed hyperlipidemia, continue statin. 6.Insomnia. Patient is on Ambien p.r.n. We will hold for now. 7.Chronic pain syndrome. Patient is on [place]. We will continue with home medications once verified . Plan: 1.Admit the patient to Med-Surg, place as inpatient. 2.Deep vein thrombosis prophylaxis with Lovenox. Length of stay greater than 2 midnights. ISABEL Voice ID: [id number]
[2019-04-08] MEDS: METHYLPREDNISOLONE 40 MG INJ IV SCH ×3 (01:34→16:17)
[2019-04-08] MEDS: ALBUTEROL 2.5 MG/3 ML NEB SOL NEB SCH ×4 (03:45→20:00)
[2019-04-08 04:28] LABS: Absolute Lymphocytes (CBC) 0.8 K/uL (0.7-4.9); Basophils % 0.2 % (0-1.3); Hematocrit 37.9 % (36.0-45.0); Lymphocytes % 6.9 % (15.3-44.8); MPV 10.4 fL (7.6-11.3)
[2019-04-08 04:29] LABS: Magnesium 2.1 mg/dL (1.8-2.4)
[2019-04-08 05:37] LABS: Blood Morphology Comment NOT SEEN (NOT SEEN); Platelet Estimate ADEQ
[2019-04-08] MEDS: NA CHLORIDE 0.9% 1,000 ML IV SCH (06:08)
[2019-04-08 06:13] LABS: Urine Appearance CLEAR; Urine Bilirubin NEGATIVE (NEG); Urine Blood NEGATIVE (NEG); Urine Color YELLOW; Urine Glucose NEGATIVE (NEG); Urine Protein NEGATIVE (NEG); Urine Urobilinogen 0.2 mg/dL (0.2-1.0); Urine pH 5.5 (5.0-7.0)
[2019-04-08 06:14] LABS: Urine Microscopic Reflex ORDER UMIC
[2019-04-08 06:21] LABS: Urine Bacteria <20 /HPF (<20); Urine Culture Reflex Order REFLEXED; Urine RBC <5 /HPF (NONE SEEN)
[2019-04-08] MEDS: ENOXAPARIN 40 MG/0.4 ML SQ SCH (07:56)
[2019-04-08] MEDS: BENZONATATE 100 MG CAP PO PRN ×3 (08:00→22:00)
[2019-04-08] MEDS ORDERED: INFLUENZA VACCINE (for 3y+) 0.5 ML DOSE IMVAC ONE (08:00)
[2019-04-08] MEDS: GUAIFENESIN/CODEINE 5ML UCUP PO PRN ×3 (08:00→23:34)
--- NOTE | 2019-04-08 09:01 | P.CNS ---
Date of Consult: 04/08/19 Chief Complaint: SOB and wheezing History of Present Illness: PT is 58 yrs of age aW SOB an dwheezing for 1-2 wks witha cough. No fever or chills. Hx of Asthma. Never smoked. Does not use BD on regular basis. Last episode 2 yrs ago when exposed to cheristmas tress Allergies amoxicillin [From Augmentin] Allergy (Verified 11/23/16 21:32) Hives clavulanic acid [From Augmentin] Allergy (Verified 11/23/16 21:32) Hives Penicillins Allergy (Verified 11/23/16 21:32) Hives Home Medications: Hydrocodone 10/APAP 325 [Lynn 10/325*] 1 tab PO TID 02/01/16 Zolpidem Tartrate [Ambien*] 10 mg PO BEDTIME 02/01/16 Pregabalin [Lyrica] 100 mg PO BIDWM 04/07/19 Pregabalin [Lyrica] 200 mg PO BEDTIME 04/07/19 - Past Medical/Surgical History Diabetic: No -: hypertension -: HLD -: avascular necrosis -: asthma -: bilateral knee surgery -: hysterectomy - Social History Smoking Status: Unknown if ever smoked Alcohol use: No CD- Drugs: No Caffeine use: No Place of Residence: Home Review of Systems 10-point ROS is otherwise unremarkable General: Weakness Respiratory: Cough, Shortness of Breath Physical Examination Temp Pulse Resp BP Pulse Ox 97.1 F 108 H 20 131/83 95 04/08/19 04:00 04/08/19 04:00 04/08/19 04:00 04/08/19 04:00 04/08/19 04:00 General: Alert, Moderate distress Respiratory: Clear to auscultation bilaterally, Diminished Cardiovascular: No edema, Regular rate/rhythm Gastrointestinal: Normal bowel sounds, Soft and benign Laboratory Data (last 24 hrs) 04/07/19 10:55: Sodium 142, Potassium 4.0, BUN 14, Creatinine 0.98, Glucose 98, Total Bilirubin 0.5, AST 11 L, ALT 18, Alkaline Phosphatase 98 04/07/19 10:55: PT 11.4, INR 0.96, APTT 31.6 04/07/19 10:55: Magnesium 2.2, Lipase 141 04/07/19 10:55: WBC 6.9, Hgb 13.7, Hct 40.2, Plt Count 221 - Problems (1) Shortness of breath Current Visit: Yes Status: Acute Plan: Patient is 58 years of age admitted with acute onset of shortness of breath fast symptom was about 2 years ago when she was exposed to a [place] she has never had to use any bronchodilators at a history of asthma denies any nocturnal symptoms of stress shortness of breath on exertion no prior history of cardiopulmonary disorders patient is never smoked no fever chills or chest pain. Patient was in obvious respiratory distress I have ordered a CT pulmonary angiogram labs reviewed chest x-rays clear white count normal admission side effects of steroids possible deep CT angiogram is negative possible discharge home tomorrow on low-dose steroids and bronchodilators to follow up with me
--- NOTE | 2019-04-08 10:19 | RAD REPORT ---
EXAM DESCRIPTION: CT - Chest For Pe Angio - 04/08/2019 9:46 am CLINICAL HISTORY: Chest pain. RO PE COMPARISON: Thorax Wo Con dated 03/25/2018 TECHNIQUE: CT angiogram of the pulmonary arteries was performed with MIP. All CT scans are performed using dose optimization technique as appropriate and may include automated exposure control or mA/KV adjustment according to patient size. FINDINGS: No evidence of pulmonary thromboembolism. No acute aortic finding demonstrated. Airspace opacity is present in the posterior left lower lobe as well as posterior segment left upper lobe and lingula compatible with mild infiltrate/ pneumonia. Mild linear atelectasis also present in right lung base. No significant pericardial or pleural fluid. Vertebroplasty cement noted midthoracic level. Fatty liver. IMPRESSION: No evidence of pulmonary thromboembolism. Mild areas of infiltrate/ pneumonia suspected left lung as detailed.
[2019-04-08] MEDS: AZITHROMYCIN 250 MG TAB PO SCH (10:57)
[2019-04-08] MEDS: HYDROCODONE/APAP 10/325 TAB PO SCH ×2 (13:18→21:22)
[2019-04-08] MEDS: PREGABALIN 50 MG CAP PO SCH (16:17)
--- NOTE | 2019-04-08 20:11 | PN ---
Date of Progress Note: 04/08/2019 Subjective: Patient seen and examined. Chart reviewed and case discussed with RN and Dr. Velez. Patient continues to be short of breath. States the wheezing is better. Cough medicine is working, however, still continues to cough without any sputum production. Medications: List reviewed. Physical Examination: Vital Signs: Temperature 97, heart rate 102, blood pressure 152/76, respirations 20, O2 94% on 2 L v ia nasal cannula. General: Awake, alert, oriented x3, ill-appearing female, in some mild respiratory distress. CV: S1, S2. Sinus tachycardia. Peripheral pulses present. Respiratory: Diminished breath sounds. Some wheezing present. Use of accessory muscles. Gastrointestinal: Abdomen is soft, nontender, nondistended. Positive bowel sounds. Extremities: No clubbing, cyanosis, or edema. Neurologic: Nonfocal. Cranial nerves 2 through 12 intact grossly. Speech is normal. Laboratory Data: Sodium 141, potassium 4, chloride 111, CO2 of 23, BUN 13, creatinine 0.8, glucose 1 36, calcium 9. Magnesium 2.1. WBC 12.2, H and H 12.5 and 37.9, platelets 230, neutrophils 91%. Blo od cultures, no growth. CT angio chest shows no evidence of PE. Mild areas of infiltrate, pneumonia suspected left lung as detailed posterior left lower lobe as well as posterior segment of the left u pper lobe and lingula. Assessment: 58-year-old female with: 1.Acute respiratory distress with hypoxia. Currently, on 2 L via nasal cannula secondary to acute a sthma exacerbation, improving. We will try to wean off as tolerated. 2.Pneumonia, left lung. We will continue with azithromycin. Appreciate Dr. Velez's input. We w ill follow up on blood cultures. Obtain sputum culture. 3.Acute asthma exacerbation. We will continue IV steroids and breathing treatments. Check peak jakob w. 4.Sinus tachycardia, likely due to above. Has been switched over to Xopenex. D-dimer is negative. CT angio was also negative for pulmonary embolism. 5.Essential hypertension, stable. 6.Mixed hyperlipidemia. Continue statin. 7.Insomnia, on Ambien p.r.n. 8.Chronic pain syndrome. Patient is on [place]. Follows up with painter interior finish. 9.Deep venous thrombosis prophylaxis with Lovenox. Plan: Respiratory Therapy consultation. Check peak flow. Wean off O2 as tolerated. Continue antib iotics. Follow up on cultures. Likely discharge in the next 24 to 48 hours. /YSABEL Voice ID: [id number] Report ID: [id number]
[2019-04-08] MEDS ORDERED: ZOLPIDEM TARTRATE 10 MG TABLET PO SCH (21:00)
[2019-04-08] MEDS ORDERED: AZITHROMYCIN IV 500 MG in NA CHLORIDE 0.9% 250 ML IVPB SCH (21:00)
[2019-04-08] MEDS ORDERED: PREGABALIN 50 MG CAP PO SCH (21:00)
[2019-04-08 21:19] VITALS: BMI 29.3
[2019-04-09] MEDS: METHYLPREDNISOLONE 40 MG INJ IV SCH ×2 (00:46→08:19)
[2019-04-09] MEDS: IPRATROPIUM BROM 0.5MG/2.5ML NEB SCH ×3 (02:00→13:35)
[2019-04-09] MEDS: ALBUTEROL 2.5 MG/3 ML NEB SOL NEB SCH ×3 (02:00→13:35)
[2019-04-09 04:21] LABS: Absolute Lymphocytes (CBC) 0.8 K/uL (0.7-4.9); Basophils % 0.1 % (0-1.3); Hematocrit 34.2 % (36.0-45.0); Lymphocytes % 4.5 % (15.3-44.8); MPV 10.7 fL (7.6-11.3); RBC Red Blood Cell Count 4.04 M/uL (3.86-4.86)
[2019-04-09 04:41] LABS: Albumin 3.6 g/dL (3.4-5.0); Bilirubin Total 0.3 mg/dL (0.2-1.0); Potassium 4.2 mmol/L (3.5-5.1); Protein, Total 6.7 g/dL (6.4-8.2)
[2019-04-09 05:12] LABS: Platelet Estimate ADEQ
[2019-04-09 05:13] LABS: Blood Morphology Comment NOT SEEN (NOT SEEN)
[2019-04-09] MEDS: PREGABALIN 50 MG CAP PO SCH (08:19)
[2019-04-09] MEDS: AZITHROMYCIN 250 MG TAB PO SCH (08:19)
[2019-04-09] MEDS: GUAIFENESIN/CODEINE 5ML UCUP PO PRN ×2 (08:19→13:50)
[2019-04-09] MEDS: BENZONATATE 100 MG CAP PO PRN (08:19)
[2019-04-09] MEDS: HYDROCODONE/APAP 10/325 TAB PO SCH (08:19)
[2019-04-09] MEDS: ENOXAPARIN 40 MG/0.4 ML SQ SCH (08:20)
[2019-04-09 08:28] VITALS: O2SAT 93
--- NOTE | 2019-04-09 08:41 | P.PN ---
Subjective Date of Service: 04/09/19 Chief Complaint: SOB and wheezing Subjective: Improving (Patient is doing much better no new complaints still short of breath) Review of Systems 10-point ROS is otherwise unremarkable Physical Examination - Vital Signs Temperature: 97.7 F Blood Pressure: 119/60 Pulse: 114 Respirations: 19 Pulse Ox (%): 95 - Physical Exam General: Alert, Oriented x3 Neck: Supple Respiratory: Clear to auscultation bilaterally, Diminished Cardiovascular: No edema, Regular rate/rhythm, Normal S1 S2 Assessment & Plan - Problems (Diagnosis) (1) Shortness of breath Current Visit: Yes Status: Acute Plan: Patient is 58 years of age admitted with acute onset of shortness of breath history of asthma possible exacerbation doing much better discharged home on low -dose prednisone 10 mg twice a day for 7 days in addition to Advair or Symbicort CT angiogram is negative echocardiogram pending vital signs stable oxygenation satisfactory labs reviewed white count is a little elevated no clinical evidence of sepsis follow up with me in 1-2 weeks she will need outpatient pulmonary function testing
--- NOTE | 2019-04-09 09:07 | ECHO ---
HEIGHT: 5 ft 4 in WEIGHT: 171 lb 0 oz DATE OF STUDY: 04/08/[address]: Paloma Walker MD 2-DIMENSIONAL: YES M.MODE: YES DOPPLER: YES COLOR FLOW: YES TDS: NO PORTABLE: NO DEFINITY: NO BUBBLE STUDY: NO DIAGNOSIS: SHORTNESS OF BREATH CARDIAC HISTORY: CATHERIZATION: NO SURGERY: NO PROSTHETIC VALVE: NO PACEMAKER: NO MEASUREMENTS (cm) DIASTOLIC (NORMALS) SYSTOLIC (NORMALS) IVSd 0.9 (0.6-1.2) LA Diam 3.2 (1.9-4.0) LVEF 79% LVIDd 3.7 (3.5-5.7) LVIDs 2.0 (2.0-3.5) %FS 47% LVPWd 0.9 (0.6-1.2) Ao Diam 2.7 (2.0-3.7) 2 DIMENSIONAL ASSESSMENT: RIGHT ATRIUM: NORMAL LEFT ATRIUM: NORMAL RIGHT VENTRICLE: NORMAL LEFT VENTRICLE: NORMAL TRICUSPID VALVE: NORMAL MITRAL VALVE: NORMAL PULMONIC VALVE: NORMAL AORTIC VALVE: NORMAL PERICARDIAL EFFUSION: NONE AORTIC ROOT: NORMAL LEFT VENTRICULAR WALL MOTION: NORMAL DOPPLER/COLOR FLOW: NORMAL COMMENTS: TECHNICALLY DIFFICULT STUDY. GROSSLY NORMAL LEFT VENTRICULAR EJECTION FRACTION AND SIZE. NO WALL MOTION ABNORMALITY. NO EFFUSION. TECHNOLOGIST: Taylor ESCOBAR
[2019-04-09 14:16] VITALS: BP 135/78; TEMP 98.7
--- NOTE | 2019-04-09 18:37 | DS ---
Date of Discharge: 04/09/2019 Consultants: Dr. Velez with Pulmonology. Admitting Diagnoses: 1.Acute respiratory distress with hypoxia. 2.Acute asthma exacerbation, intermittent asthma. 3.Sinus tachycardia. 4.Essential hypertension. 5.Mixed hyperlipidemia. 6.Insomnia. 7.Chronic pain syndrome. Discharge Diagnoses: 1.Acute respiratory distress with hypoxia, resolved, improving. 2.Pneumonia, left lung, treated with azithromycin. 3.Acute intermittent asthma exacerbated with acute exacerbation, improving. 4.Sinus tachycardia. 5.Essential hypertension. 6.Mixed hyperlipidemia, on statin. 7.Insomnia, on Ambien. 8.Chronic pain syndrome, on narcotics. Hospital Course: Patient is a 58-year-old female with asthma, chronic pain, insomnia, comes in with worsening shortness of breath. Patient has been on a Z-Jerson for the past couple of days, had worsenin g shortness of breath, wheezing. Her chest x-ray showed vascular crowding due to underinflation. Ot herwise, no displaced fractures. Patient continued to be tachycardic, hypoxic. CT angio was done, w hich was negative for PE, possible infiltrate in the left lung suspected. Patient was seen by pulmon ologist, Dr. Velez, her inhalers were adjusted. Patient was then improving with nebulizer treatme nts and steroids as well as oxygen. She was able to be weaned off O2. Patient did not show any sign s of sepsis. Patient was then cleared for discharge as she was able to ambulate without difficulty. Her white count was elevated, likely due to steroids. No signs of sepsis. Blood cultures were nega tive. Her urine culture showed mixed symone. Echocardiogram was also done, which showed an EF of 79% . No wall motion abnormality. Patient was then cleared for discharge, was sent home in a stable con dition. Activity: As tolerated. No driving or operating heavy machinery while on narcotics. Medications: As per medication reconciliation list. Followup: Follow up with primary care physician in 2-3 days. Follow up with grinding mill operator, Dr. Luh berman in 1 week. Physical Examination: General: Awake, alert, oriented x3. No acute distress. CV: S1, S2. Respiratory: Slightly diminished breath sounds, minimal wheezing heard. Gastrointestinal: Abdomen is soft, nontender, nondistended. Positive bowel sounds. Extremities: No clubbing, cyanosis, edema. Neurologic: Nonfocal. Total time spent discharging the patient was 36 minutes. /YSABEL Voice ID: [id number] Report ID: [id number]
== END 2019-04-09 14:00 | disposition home or self-care (01) | DRG 202 ==
LOC: ER 10:21 → ERHOLD 17:30 → 4TH 19:49
PROVIDERS: ADMIT Family Medicine; ATTEND Family Medicine
DX: J45.901 Unspecified asthma with (acute) exacerbation (principal); J18.9 Pneumonia, unspecified organism; R06.03 Acute respiratory distress; R09.02 Hypoxemia; R00.0 Tachycardia, unspecified; I10 Essential (primary) hypertension; E78.2 Mixed hyperlipidemia; G89.4 Chronic pain syndrome; G47.00 Insomnia, unspecified; Z96.653 Presence of artificial knee joint, bilateral
CPT/HCPCS: 36415; 71045; 71275; 80048; 80053; 81003; 81015; 83690; 83735; 83880; 84484; 85025; 85379; 85610; 85730; 87040; 87086; 87088; 93005; 93306; 94010; 94640; 96374; 99285; J0456; J1650; J2405; J2920; J2930; J7030; Q9967